=== PATIENT | male | born 1990 | race Hispanic/Latino ===

== ENCOUNTER 2021-05-18 20:40 | Emergency (ER) | payer MEDICAID, OTHER ==
[~2021-05-18] VITALS: Ht 172.7 cm; Wt 104.3 kg
[2021-05-18 20:48] VITALS: BP 141/95
[2021-05-18] MEDS ORDERED: ACET1TAB25 PO (21:04)
[2021-05-18] MEDS ORDERED: CLIN-141 PO (21:04)
[2021-05-18] MEDS: CLINDAMYCIN 150 MG CAP PO ONE (21:13)
[2021-05-18] MEDS: ACETAMINOPHEN WITH CODEINE 1 TAB TAB PO ONE (21:13)
== END 2021-05-18 21:23 | disposition home or self-care (01) ==
LOC: EDH 20:40
DX: S02.5XXA Fracture of tooth (traumatic), initial encounter for closed fracture (principal); Z88.0 Allergy status to penicillin; X58.XXXA Exposure to other specified factors, initial encounter; Y93.89 Activity, other specified; Y92.89 Other specified places as the place of occurrence of the external cause; Y99.8 Other external cause status

== ENCOUNTER 2022-05-02 12:49 | Emergency (ER) | payer OTHER ==
[~2022-05-02] VITALS: Ht 172.7 cm; Wt 99.8 kg
[~2022-05-02 12:49] MED LIST: ACET-2079 PO; CLIN-141 PO
[2022-05-02] MEDS ORDERED: BENZ-39 PO (14:38)
[2022-05-02] MEDS ORDERED: PSEU120T89 PO (14:38)
[2022-05-02] MEDS ORDERED: IBUP-2071 PO (14:38)
[2022-05-02 15:40] VITALS: BP 142/76
== END 2022-05-02 15:10 | disposition home or self-care (01) ==
LOC: EDH 12:49
DX: J06.9 Acute upper respiratory infection, unspecified (principal); Z79.2 Long term (current) use of antibiotics; Z79.899 Other long term (current) drug therapy; Z88.0 Allergy status to penicillin; Z20.822 Contact with and (suspected) exposure to COVID-19
CPT/HCPCS: 99284; 71045; 87635; 87804 ×2; C9803